=== PATIENT | male | born 1950 | race Caucasian/White ===

== ENCOUNTER 2017-07-26 17:21 | Emergency (ER) | payer OTHER ==
[~2017-07-26] VITALS: Ht 172.7 cm; Wt 127.9 kg
[2017-07-26] MEDS ORDERED: FORTAMET1000 MG (17:54)
[2017-07-26] MEDS ORDERED: COZAAR100 MG (17:54)
[2017-07-26] MEDS ORDERED: NOVOLOG MI100 UNIT/2 (17:54)
== END 2017-07-26 20:27 | disposition home or self-care (01) ==
LOC: ER 17:21
DX: S00.83XA Contusion of other part of head, initial encounter (principal); W18.39XA Other fall on same level, initial encounter; Y93.89 Activity, other specified; Y92.89 Other specified places as the place of occurrence of the external cause; Y99.8 Other external cause status; R42 Dizziness and giddiness